=== PATIENT | male | born 1955 | race Caucasian/White ===

== ENCOUNTER 2019-02-26 22:09 | Observation (INO) | payer MEDICAID, SELFPAY ==
[2019-02-26 22:10] VITALS: BP 134/83; PULSE 67; RESP 16; TEMP 36.7; O2SAT 97; BMI 36.4
[2019-02-26] MEDS: 0.9% Normal Saline 1,000 ML 150 ML IV (23:37)
[2019-02-26 23:39] LABS: Absolute Lymphocyte Count 2.13 X10^3/ul (0.83-4.51); Absolute Neutrophil Count 3.3 X10^3/uL (2.0-7.7); Basophil# 0.04 X10^3/uL; Basophil% 0.6 % (0-1); Eosinophil# 0.22 X10^3/uL; Eosinophils% 3.5 % (0-5); Hematocrit 45.9 % (40-54); Lymphocyte # 2.13 X10^3/ul (4.0); Mean Corp Hgb Conc 34.9 g/gl (32-36); Mean Corpuscular Hgb 31.1 pg (27.0-32.0); Mean Corpuscular Volume 89.3 fL (80-94); Mean Platelet Vol. 11.4 fl (6.2-12.0); Monocyte# 0.57 X10^3/uL; Monocyte% 9.1 % (0-10); Neutrophil # 3.28 X10^3/uL (2.7-7.7); Neutrophil % 52.5 % (47-70); Platelet Count 137 K/mm3 (150-450); RBC Distribution Width CV 12.4 % (11.6-14.6); Red Blood Count 5.14 M/mm3 (4.6-6.2); White Blood Count 6.3 K/mm3 (4.4-11.0)
[2019-02-26 23:41] LABS: POSITIVE COUNT NO; POSITIVE DIFFERENTIAL NO; POSITIVE MORPHOLOGY NO
[2019-02-26 23:54] LABS: Anion Gap 9 (5-15); BUN 16 mg/dL (7-18); BUN/Creat Ratio 16.5 RATIO (10-20); Calcium,Total 8.1 mg/dL (8.5-10.1); Chloride 105 mmol/L (98-107); Creatinine, Serum 0.97 mg/dL (0.70-1.30); EST Glomerular Filtration Rate 83 mL/min (>60); Est Glom Filt Rate - Afr Amer 101 mL/min (>60); Estimated Creatinine Clearance 75.41 ml/min; Glucose 294 mg/dL (74-106); Potassium 3.9 mmol/L (3.5-5.1); Sodium Level 139 mmol/L (136-145)
[2019-02-27] MEDS: DiphenhydrAMINE 50 MG/ML Syringe 25 MG IV (00:13)
[2019-02-27 00:14] VITALS: BP 143/87; PULSE 52; RESP 16; O2SAT 98
--- NOTE | 2019-02-27 00:27 | ED.VISSUMM ---
- ER Visit Summary Date of Service: 02/27/19 Chief Complaint: Cellulitis History of Present Illness: The patient is a 63 M with a red rash and lesions to the right lower extremity over the past 10 days. Lesions have been just below the knee. He was seen at a hospital in [place] approximately 10 days ago. He started on Bactrim 7 days ago along with metformin for untreated diabetes. Patient reports no improvement in the lower leg lesions but now has multiple pustule-like lesions on the right thigh. He denies fever or chills. Patient states in 2014 he had a similar infection in his left leg and he was hospitalized at [facility] for 5 days for an IV antibiotics. Patient states his blood sugar this morning was in the 360 range. Physical Examination: Vital signs unremarkable. Patient sitting upright in bed no acute distress. Heart is regular rate and rhythm. Lung sounds clear. Abdomen is soft nontender. Right lower extremity examination reveals pustules and folliculitis type lesions to the right thigh. There is a confluence of small blister lesions on the lower leg with surrounding erythema. No open draining wounds at this time that would be amenable to culture. Strong distal pulses are noted. Test Results: Blood cultures were drawn. CBC was remarkable only for a platelet count of 137,000. Chemistry studies significant for glucose of 294. Emergency Department Course and Treatment: Patient was given Benadryl for the itchiness to the lesions as well as a dose of IV vancomycin. Patient has been on Bactrim for 7 days and is noted worsening of the lesions. He will be admitted for IV antibiotics at this time. Treatment Plan: [] Disposition: Admit Impression: Right lower extremity cellulitis, failed outpatient management This note was generated with Bizware dictation software. It may contain incorrect words, spelling, and punctuation that were not noted in review of the chart prior to signing ED Disposition - Plan for ED Patient: Referrals: Care Physician,No Primary [Primary Care Provider] -
--- NOTE | 2019-02-27 00:30 | ED.DCSUM_ITS ---
- ER Visit Summary Date of Service: 02/27/19 Chief Complaint: Cellulitis History of Present Illness: The patient is a 63 M with a red rash and lesions to the right lower extremity over the past 10 days. Lesions have been just below the knee. He was seen at a hospital in [place] approximately 10 days ago. He started on Bactrim 7 days ago along with metformin for untreated diabetes. Patient reports no improvement in the lower leg lesions but now has multiple pustule-like lesions on the right thigh. He denies fever or chills. Patient states in 2014 he had a similar infection in his left leg and he was hospitalized at [facility] for 5 days for an IV antibiotics. Patient states his blood sugar this morning was in the 360 range. Physical Examination: Vital signs unremarkable. Patient sitting upright in bed no acute distress. Heart is regular rate and rhythm. Lung sounds clear. Abdomen is soft nontender. Right lower extremity examination reveals pustules and folliculitis type lesions to the right thigh. There is a confluence of small blister lesions on the lower leg with surrounding erythema. No open draining wounds at this time that would be amenable to culture. Strong distal pulses are noted. Test Results: Blood cultures were drawn. CBC was remarkable only for a platelet count of 137,000. Chemistry studies significant for glucose of 294. Emergency Department Course and Treatment: Patient was given Benadryl for the itchiness to the lesions as well as a dose of IV vancomycin. Patient has been on Bactrim for 7 days and is noted worsening of the lesions. He will be admitted for IV antibiotics at this time. Treatment Plan: [] Disposition: Admit Impression: Right lower extremity cellulitis, failed outpatient management This note was generated with [employer] dictation software. It may contain incorrect words, spelling, and punctuation that were not noted in review of the chart prior to signing ED Disposition - Plan for ED Patient: Referrals: Care Physician,No Primary [Primary Care Provider] -
--- NOTE | 2019-02-27 00:35 | PCM.HP.STD ---
Problem List (1) Cellulitis of right leg Status: Acute (2) Diabetes Status: Acute History of Present Illness Date of Admission: 02/27/19 Chief Complaint: Failed outpatient treatment for right leg cellulitis. The patient is a 63 year old M with a significant history of homelessness diabetes mellitus and previous MRSA infection of the left leg who presented with failure of outpatient treatment of right leg cellulitis. His symptoms started about 10 days ago. He reports swelling; redness; throbbing and numbness of his right leg. 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 Patient reported that outpatient he was given Bactrim and a cream. However he noticed that he had developed a rash about the site of cellulitis; specifically on his right thigh. He reported he was recently started on metformin for diabetes. Many years ago his blood glucose was high but he brushed it aside. The emergency department patient was given a vancomycin and Benadryl for itching of his right leg. . Past Medical History Allergies No Known Allergies Allergy (Verified 02/26/19 22:12) Home Medications: Ambulatory Orders Medication Instructions Recorded Metformin HCl [Glucophage] 500 mg PO DINNER 02/26/19 Sulfamethoxazole/Trimethoprim 1 each PO BID 02/26/19 [Bactrim Ds Tablet] Smoking Status: Never smoker VTE Information - Inpt Only VTE Present on Admission: No VTE Pharm Prophylaxis ordered?: Yes Patient Problems: Active and Suspected Problems Cellulitis of right leg (Acute) Diabetes (Acute) - Physical Exam General: Alert, Oriented x3, Cooperative HEENT: Atraumatic, PERRLA, EOMI, Normocephalic Neck: Supple, No JVD, Negative Carotid Bruits Lungs: Clear to auscultation, Normal air movement Cardiovascular: Regular rate, No murmurs Abdomen: Bowel Sounds Present, Soft, Non Tender Extremities: No edema, Capillary Refill Less than 3 Seconds Skin: No rashes, No breakdown, - - Erythema and excoriation of right leg; excoriation on right hip/thigh Musculoskeletal: No Tenderness to Palpation of Joints or Extremities Neurological: Motor Exam 5/5 strength throughout Psych/Mental Status: Normal Affect, Appropriate Vital Signs Temp Pulse Resp BP Pulse Ox 98.1 F 52 L 16 143/87 H 98 02/26/19 22:10 02/27/19 00:14 02/27/19 00:14 02/27/19 00:14 02/27/19 00:14 Oxygen Delivery Method Room Air Weight: 108.7 kg Body Mass Index (BMI) 36.4 Laboratory Tests Past 24 Hrs 02/26/19 02/26/19 23:30 23:30 WBC 6.3 RBC 5.14 Hgb 16.0 Hct 45.9 MCV 89.3 MCH 31.1 MCHC 34.9 RDW 12.4 RDW Differential 40.0 Plt Count 137 L MPV 11.4 Immature Gran % (Auto) 0.300 Neut % (Auto) 52.5 Lymph % (Auto) 34.0 Metcalfe % (Auto) 9.1 Eos % (Auto) 3.5 Baso % (Auto) 0.6 Absolute Neuts (auto) 3.3 Absolute Lymphs (auto) 2.13 Total Counted Not Reportable Sodium 139 Potassium 3.9 Chloride 105 Carbon Dioxide 25.0 Anion Gap 9 BUN 16 Creatinine 0.97 Estim Creat Clear Calc 75.41 Est GFR (MDRD) Af Amer 101 Est GFR (MDRD) Non-Af 83 BUN/Creatinine Ratio 16.5 Glucose 294 H Calcium 8.1 L Assessment/Plan All Active Problems Cellulitis of right leg (Acute) Diabetes (Acute) The patient is a 63 year old M with a significant history of homelessness diabetes mellitus and previous MRSA infection of the left leg who presented with failure of outpatient treatment of right leg cellulitis. Right leg cellulitis Patient received vancomycin emergency department. We will continue vancomycin and add cefazolin. We will get a Doppler of lower extremity. Diabetes mellitus On presentation his blood glucose was not within goal. We will hold metformin Will put patient on basal; prandial and correction scale insulin. Homelessness Case management consult DVT prophylaxis Subcutaneous Lovenox Code Visit Inpatient E&M: 02048 Init Hosp L3
--- NOTE | 2019-02-27 01:33 | VDLE_ITS ---
Reason For Study: SWELLING RIGHT LEFT GSV is normal. GSV is normal. CFV is compressible, spontaneous, phasic, CFV is compressible, spontaneous, phasic, competent and demonstrates normal competent, and demonstrates normal augmentation. augmentation. FV is compressible, spontaneous, phasic, FV is compressible, spontaneous, phasic, competent and demonstrates normal competent and demonstrates normal augmentation. augmentation. POP V is compressible, spontaneous, phasic, POP V is compressible, spontaneous, phasic, competent and demonstrates normal competent and demonstrates normal augmentation. augmentation. T/P Trunk is compressible. T/P Trunk is compressible. PTV is compressible. PTV is compressible. RT PerV is compressible. LT PerV is compressible. Procedure Exam performed portable in patient room. A preliminary report was called and/or faxed to [facility]. Interpretation Summary No evidence for acute deep venous thrombosis bilateral lower extremities with patent and compressible bilateral great saphenous veins. Ordering Physician: Adonis Costello Referring Physician: Adonis Costello Performed By: Dedra Manjarrez, SANDIE, RVT
[2019-02-27 01:37] VITALS: BP 141/82; PULSE 53; RESP 16; TEMP 36.4; O2SAT 100
[2019-02-27 01:46] VITALS: BMI 36.1
[2019-02-27 02:01] LABS: Bedside Glucose 296 mg/dL (70-110)
[2019-02-27 02:02] VITALS: BMI 36.2
--- NOTE | 2019-02-27 02:13 | PCM.RX.CS ---
Consult Pharmacy has been consulted to manage selected antiobiotic: Vancomycin Type of Consult: New start Suspected Infection: Skin/Soft tissue Prior Doses of Antibiotics Received/Current Regimen: Medications Vancomycin HCl 1,500 mg/ (Sodium Chloride) 530 mls @ 250 mls/hr IV Q12H CATHY Discontinued Medications Vancomycin HCl 1,750 mg/ (Dextrose) 535 mls @ 250 mls/hr IV X1 ONE Stop: 02/27/19 01:23 Last Admin: 02/26/19 23:37 Dose: 250 mls/hr Labs: Sodium 139 mmol/L (136-145) 02/26/19 23:30 Potassium 3.9 mmol/L (3.5-5.1) 02/26/19 23:30 Chloride 105 mmol/L (98-107) 02/26/19 23:30 Carbon Dioxide 25.0 mmol/L (21.0-32.0) 02/26/19 23:30 Anion Gap 9 (5-15) 02/26/19 23:30 BUN 16 mg/dL (7-18) 02/26/19 23:30 Creatinine 0.97 mg/dL (0.70-1.30) 02/26/19 23:30 Est GFR (MDRD) Af Amer 101 mL/min (>60) 02/26/19 23:30 Est GFR (MDRD) Non-Af 83 mL/min (>60) 02/26/19 23:30 BUN/Creatinine Ratio 16.5 RATIO (10-20) 02/26/19 23:30 Glucose 294 mg/dL (74-106) H 02/26/19 23:30 Weight used for dosin.7 kg Estimated Creatinine Clearance: 75 Goal Trough: 15-20 mcg/mL Pharmacy Plan for Drug Dosing: Pharmacy Service will continue to monitor and adjust dosing as required. Follow-Up Labs: Trough Vancomycin Labs to be done on [date and time ordered]: 02/28/19 @1100
[2019-02-27] MEDS: Cefazolin 1 GM/50 ML BAG IV ×4 (02:51→20:51)
[2019-02-27 06:24] LABS: Absolute Lymphocyte Count 1.63 X10^3/ul (0.83-4.51); Absolute Neutrophil Count 2.9 X10^3/uL (2.0-7.7); Basophil# 0.01 X10^3/uL; Basophil% 0.2 % (0-1); Eosinophil# 0.26 X10^3/uL; Eosinophils% 4.8 % (0-5); Hematocrit 43.4 % (40-54); Lymphocyte # 1.63 X10^3/ul (4.0); Mean Corp Hgb Conc 34.6 g/gl (32-36); Mean Corpuscular Hgb 31.3 pg (27.0-32.0); Mean Corpuscular Volume 90.4 fL (80-94); Mean Platelet Vol. 11.2 fl (6.2-12.0); Monocyte# 0.61 X10^3/uL; Monocyte% 11.2 % (0-10); Neutrophil # 2.89 X10^3/uL (2.7-7.7); Neutrophil % 53.2 % (47-70); Platelet Count 116 K/mm3 (150-450); RBC Distribution Width CV 12.4 % (11.6-14.6); RBC Distribution Width SD 40.5 fl (35.1-43.9); White Blood Count 5.4 K/mm3 (4.4-11.0)
[2019-02-27 06:25] LABS: POSITIVE COUNT NO; POSITIVE DIFFERENTIAL NO; POSITIVE MORPHOLOGY NO
[2019-02-27 06:32] LABS: Anion Gap 6 (5-15); BUN 14 mg/dL (7-18); BUN/Creat Ratio 14.8 RATIO (10-20); Calcium,Total 8.1 mg/dL (8.5-10.1); Chloride 105 mmol/L (98-107); Creatinine, Serum 0.94 mg/dL (0.70-1.30); EST Glomerular Filtration Rate 86 mL/min (>60); Est Glom Filt Rate - Afr Amer 104 mL/min (>60); Estimated Creatinine Clearance 77.82 ml/min; Glucose 285 mg/dL (74-106); Potassium 3.5 mmol/L (3.5-5.1); Sodium Level 139 mmol/L (136-145)
[2019-02-27 06:41] VITALS: BP 144/88; PULSE 60; RESP 16; TEMP 36.8; O2SAT 97
[2019-02-27 06:50] LABS: Bedside Glucose 287 mg/dL (70-110)
[2019-02-27 09:05] VITALS: BP 138/82; PULSE 63; RESP 16; TEMP 36.4; O2SAT 97
[2019-02-27] MEDS: Insulin Lispro 100 UNIT/ML INSULN.PEN SQ ×5 (09:13→17:04)
[2019-02-27] MEDS: Enoxaparin 40 MG/0.4 ML Syringe SC (09:14)
[2019-02-27] MEDS: DiphenhydrAMINE 25 MG Capsule PO ×2 (09:26→20:57)
[2019-02-27 09:31] LABS: Bedside Glucose 373 mg/dL (70-110)
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
[2019-02-27 12:41] LABS: Bedside Glucose 232 mg/dL (70-110)
[2019-02-27 14:50] VITALS: BP 130/77; PULSE 56; RESP 16; TEMP 36.4; O2SAT 97
--- NOTE | 2019-02-27 14:50 | CHAPLAIN ---
Type of Pastoral Visit _x__ Initial Visit ___ Follow-up Visit ___ On-call Visit ___ General Patient Visit ___ Spiritual Assessment ___ Family Conference ___ Bereavement ___ Rapid Response ___ Code Blue ___ Other (describe below) Pastoral Care Referral From _x__ Patient ___ Family ___ Nurse ___ Physician ___ Access Registrar ___ Karate Instructor ___ Other (describe below) Sacrament/Intervention _x__ Active listening ___ Anointing ___ Rastafarian ___ Bereavement ___ Communion ___ April exploration ___ _x__ Life review _x__ Prayer ___ Reconciliation ___ Sacrament of Sick ___ Supportive presence ___ Wedding ___ Other (describe below) Pastoral Comments patient is walking in the hallways and engages this foreclosure field inspector into conversation; pt gives life review and life stories; pt welcomes spiritual support and prayer;
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
[2019-02-27] MEDS: Furosemide 40 MG/4 ML Vial IV (15:39)
[2019-02-27 16:21] LABS: Anion Gap 5 (5-15); BUN 15 mg/dL (7-18); BUN/Creat Ratio 15.1 RATIO (10-20); Calcium,Total 8.1 mg/dL (8.5-10.1); Chloride 107 mmol/L (98-107); EST Glomerular Filtration Rate 80 mL/min (>60); Est Glom Filt Rate - Afr Amer 97 mL/min (>60); Estimated Creatinine Clearance 73.15 ml/min; Glucose 163 mg/dL (74-106); Sodium Level 140 mmol/L (136-145)
[2019-02-27] MEDS: Insulin Lispro 100 UNIT/ML INSULN.PEN 10 UNIT SQ (17:04)
[2019-02-27 17:35] LABS: Bedside Glucose 189 mg/dL (70-110)
--- NOTE | 2019-02-27 17:57 | PCM.HOSP.N ---
Hospitalist Note Patient was seen and examined today and I talked with him briefly, patient has a bizarre affect and changes subjects continuously while talking to him, he states that he had a checkup at a urologist office in 2017 and his blood sugar was checked at that time and it was over 700-he then proceeded to tell me that no definitive recommendation was made to him about his blood sugar by the urologist. Patient also states that he was never told definitely that he had MRSA, he states that a nurses aide had looked at his leg previously when he had an episode of cellulitis and told him that it appeared to look like MRSA. Patient states he saw many physicians during a hospitalization at [facility] years ago and the physicians were not able to definitely give him a diagnosis. Patient states that a week ago he saw a primary care physician for an evaluation and was placed on antibiotics for redness of his right lower leg and at that time he was given medication for type 2 diabetes (metformin). Patient does not have a residence-he states he lives out of his car. I have decided to adjust the patient's insulin regimen, I have placed the patient on triamcinolone cream to his right lower leg, I have elected to keep him on Ancef for his cellulitis, I have decided to place him on IV Lasix due to severe lower extremity edema. Patient's venous duplex scan on his legs did not reveal VTE. It appears that the patient likely has a personality disorder, bipolar disorder, or possibly schizoaffective disorder. This is based on my evaluation and interaction with the patient during my visit in his room today.
--- NOTE | 2019-02-27 18:02 | CCHN_ITS ---
Hospitalist Note Patient was seen and examined today and I talked with him briefly, patient has a bizarre affect and changes subjects continuously while talking to him, he states that he had a checkup at a urologist office in 2017 and his blood sugar was checked at that time and it was over 700-he then proceeded to tell me that no definitive recommendation was made to him about his blood sugar by the urologist. Patient also states that he was never told definitely that he had MRSA, he states that a nurses aide had looked at his leg previously when he had an episode of cellulitis and told him that it appeared to look like MRSA. Patient states he saw many physicians during a hospitalization at [facility] years ago and the physicians were not able to definitely give him a diagnosis. Patient states that a week ago he saw a primary care physician for an evaluation and was placed on antibiotics for redness of his right lower leg and at that time he was given medication for type 2 diabetes (metformin). Patient does not have a residence-he states he lives out of his car. I have decided to adjust the patient's insulin regimen, I have placed the patien t on triamcinolone cream to his right lower leg, I have elected to keep him on Ancef for his cellulitis, I have decided to place him on IV Lasix due to severe lower extremity edema. Patient's venous duplex scan on his legs did not reveal VTE. It appears that the patient likely has a personality disorder, bipolar disorder, or possibly schizoaffective disorder. This is based on my evaluation and interaction with the patient during my visit in his room today.
[2019-02-27] MEDS: Furosemide 20 MG/2 ML VIAL IV (18:35)
[2019-02-27 20:45] VITALS: BP 136/76; PULSE 65; RESP 18; TEMP 36.7; O2SAT 96
[2019-02-27 20:45] LABS: Bedside Glucose 99 mg/dL (70-110)
[2019-02-27] MEDS: Triamcinolone 0.5% Cream 1 APPLIC TOPICAL (20:48)
--- NOTE | 2019-02-27 23:03 | NURSING ---
pt removed dressing again and is touching and scratching his wound advised against this. pt asking for more benadryl reminded pt that he already had 25mg @ 2100 explained that will have to check with dr to see if he can have anything else. Pt irritable with nurse stating he wants med. Explained that the dr has to order any medication that we give him will let him know what the dr says.
--- NOTE | 2019-02-27 23:17 | NURSING ---
informed pt we cannot give additional benadryl at this time. offered cool compress. pt accepted. pt frustrated with this RN asking why the doctor doesn't come see him. This RN explained to the pt that doctors do not round on each pt at night unless it is an emergency and that he would be seen tomorrow. pt expressed understanding and accepted the cool compress.
[2019-02-28] MEDS: Cefazolin 1 GM/50 ML BAG IV (05:07)
[2019-02-28] MEDS: DiphenhydrAMINE 25 MG Capsule PO (05:07)
[2019-02-28] MEDS: 0.9% NaCl Peripheral Flush Adult/Peds IV (05:08)
[2019-02-28 05:14] VITALS: BP 128/73; PULSE 50; RESP 16; TEMP 36.8; O2SAT 98
[2019-02-28] MEDS: Insulin Lispro 100 UNIT/ML INSULN.PEN 10 UNIT SQ (09:15)
[2019-02-28] MEDS: Enoxaparin 40 MG/0.4 ML Syringe SC (09:18)
[2019-02-28] MEDS: Furosemide 20 MG/2 ML VIAL IV (09:18)
[2019-02-28] MEDS: Triamcinolone 0.5% Cream 1 APPLIC TOPICAL (09:18)
[2019-02-28 09:43] VITALS: BP 124/70; PULSE 54; RESP 16; TEMP 36.8; O2SAT 98
--- NOTE | 2019-02-28 11:04 | DCINST_ITS ---
- Discharge Diagnoses Current Active Problems: Current Active and Chronic Problems Cellulitis of right leg (Acute) Diabetes (Acute) You will use the following diet at home:: Calorie/Carbohydrate Controlled (specify 1200, 1400, etc) - 1800 Your food should be the consistency of: Regular Your liquids should be the consistency of: Regular/Thin Discharge Activity: Return to Normal Activity Weight Bearing Status: Full weight bearing Allergies/Adverse Reactions: Allergies No Known Allergies Allergy (Verified 02/26/19 22:12) Medications to take at Discharge Cefadroxil [Duracef] 1,000 mg PO BID #30 capsule 02/28/19 Glimepiride [Amaryl] 4 mg PO DAILY #30 tablet 02/28/19 Metformin HCl [Glucophage] 500 mg PO BID #60 tablet 02/28/19 Sildenafil Citrate [Viagra] 100 mg PO UD #10 tablet 02/28/19 Triamcinolone 0.5% Cream [Kenalog] 1 applic TOPICAL BID #30 gm 02/28/19 The following prescriptions were given: Glimepiride [Amaryl] 4 mg PO DAILY #30 tablet Sildenafil Citrate [Viagra] 100 mg PO UD #10 tablet Cefadroxil [Duracef] 1,000 mg PO BID #30 capsule Metformin HCl [Glucophage] 500 mg PO BID #60 tablet Triamcinolone 0.5% Cream [Kenalog] 1 applic TOPICAL BID #30 gm Primary Care Physician: Care Physician,No Primary [Primary Care Provider] - Please follow up with your Primary Care Physician in: in two weeks Test Results: Test results from this visit will be discussed in further detail at your follow- up appointment, if applicable.
--- NOTE | 2019-02-28 19:25 | PCM.DC.SUM ---
Discharge Date and Diagnosis Date of Admission: 02/27/19 Date of Discharge: 02/28/19 - Primary Discharge Diagnosis #1 right lower leg lebufvhdos-mwhz-hufodelv bacterial #2 eczema right lower leg #3 uncontrolled type 2 diabetes #4 peripheral edema-etiology unclear Hospital Course and Treatment Operations: None Procedures: None Summary of Care Provided: The patient is a 63 year old M who was seen in the emergency room at [facility] complains of a red rash on his right lower extremity over the past 10 days. Patient states that he had been diagnosed with type 2 diabetes approximately 10 days ago and placed on medications for diabetes and 7 days ago he was started on Bactrim. Patient reported no improvement in his rash and came to the ER for evaluation. Patient was given Benadryl in the emergency room as well as IV vancomycin, labs were obtained CBC was remarkable only for a platelet count of 137,000, chemistry studies were significant for glucose of 294. Patient was placed into observation status for right lower extremity cellulitis with failed outpatient treatment, his antibiotic was changed to IV Ancef, he was placed on corticosteroid cream for eczema on his right lower leg and he underwent a venous duplex scan of his legs to rule out DVT, no DVT was found. Patient was placed on some IV Lasix for lower extremity edema and he was placed on insulin to control his type 2 diabetes. Patient exhibited some personality traits during his hospitalization, he talked inappropriately about sexual matters at times and exhibited some flight of ideas. On 02/28/2019, patient was seen and examined: On examination he appeared in good health and spirits. Vital signs as documented. Skin warm and dry and without overt rashes. Neck without JVD. Lungs clear. Heart exam notable for regular rhythm, normal sounds and absence of murmurs, rubs or gallops. Abdomen unremarkable and without evidence of organomegaly, masses, or abdominal aortic enlargement. Extremities-mild edema is noted over both lower legs, there are areas that appear to be folliculitis on the patient's right upper leg, there are areas of what appear to be eczema over the patient's right lower leg along with some warmth and redness of the area.. Neuro: Cranial nerves II through XII are grossly intact, no focal motor deficits were noted, sensation to light touch and pinprick intact. Psych: Patient is alert and oriented x3, he does not appear anxious or depressed On 02/28/2019, patient was felt to be stable for discharge home, I made a decision to place the patient on oral medications for his diabetes due to the fact that he was not compliant with follow-up visits-I recommended that the patient see a physician in town here and gave him a list of several physicians taking new patients. He was placed on Duricef for his cellulitis, I did not place him on diuretics at the time of discharge, patient requested ED medication and I gave him a prescription for Viagra. - Physical Exam Vital Signs Temp Pulse Resp BP Pulse Ox 98.2 F 54 L 16 124/70 H 98 02/28/19 09:43 02/28/19 09:43 02/28/19 09:43 02/28/19 09:43 02/28/19 09:43 Oxygen Delivery Method Room Air Weight: 108 kg Body Mass Index (BMI) 36.1 Intake and Output for Last 24 Hours 02/26/19 02/27/19 02/28/19 23:59 23:59 23:59 Intake Total 1927 / 1927 974 / 974 Output Total 600 / 600 Balance 1927 / 1927 374 / 374 Laboratory Tests Past 24 Hrs 02/28/19 10:50 Vancomycin Trough 3.0 L POC Glucose 02/27/19 20:31 POC Glucose 99 Discharge Activity: Return to Normal Activity Weight Bearing Status: Full weight bearing Home Medications: Medications to take at Discharge Cefadroxil [Duracef] 1,000 mg PO BID #30 capsule 02/28/19 Glimepiride [Amaryl] 4 mg PO DAILY #30 tablet 02/28/19 Metformin HCl [Glucophage] 500 mg PO BID #60 tablet 02/28/19 Sildenafil Citrate [Viagra] 100 mg PO UD #10 tablet 02/28/19 Triamcinolone 0.5% Cream [Kenalog] 1 applic TOPICAL BID #30 gm 02/28/19 Following Prescrptions Were Given to Patient: Glimepiride [Amaryl] 4 mg PO DAILY #30 tablet Sildenafil Citrate [Viagra] 100 mg PO UD #10 tablet Cefadroxil [Duracef] 1,000 mg PO BID #30 capsule Metformin HCl [Glucophage] 500 mg PO BID #60 tablet Triamcinolone 0.5% Cream [Kenalog] 1 applic TOPICAL BID #30 gm Primary Care Physician: Care Physician,No Primary [Primary Care Provider] - Please follow up with your Primary Care Physician in: in two weeks Disposition: Home Minutes spent on discharge:: 30 Patient Condition:: Stable Medical Necessity - Tobacco Use Smoking Status: Never smoker Meaningful Use Info Meaningful Use Diagnoses (Choose all that apply): None applicable Code Visit OBSV E&M: 71032 Observation care discharge
--- NOTE | 2019-02-28 19:31 | DS.PCM_ITS ---
Discharge Date and Diagnosis Date of Admission: 02/27/19 Date of Discharge: 02/28/19 - Primary Discharge Diagnosis #1 right lower leg ikbwjizhgf-jwvw-xjxsibwk bacterial #2 eczema right lower leg #3 uncontrolled type 2 diabetes #4 peripheral edema-etiology unclear Hospital Course and Treatment Operations: None Procedures: None Summary of Care Provided: The patient is a 63 year old M who was seen in the emergency room at [facility] complains of a red rash on his right lower extremity over the past 10 days. Patient states that he had been diagnosed with type 2 diabetes a pproximately 10 days ago and placed on medications for diabetes and 7 days ago he was started on Bactrim. Patient reported no improvement in his rash and came to the ER for evaluation. Patient was given Benadryl in the emergency room as well as IV vancomycin, labs were obtained CBC was remarkable only for a platelet count of 137,000, chemistry studies were significant for glucose of 294. Tripp restrepo was placed into observation status for right lower extremity cellulitis with failed outpatient treatment, his antibiotic was changed to IV Ancef, he was placed on corticosteroid cream for eczema on his right lower leg and he underwent a venous duplex scan of his legs to rule out DVT, no DVT was found. Patient was placed on some IV Lasix for lower extremity edema and he was placed on insulin to control his type 2 diabetes. Patient exhibited some personality traits during his hospitalization, he talked inappropriately about sexual matters at times and exhibited some flight of ideas. On 02/28/2019, patient was seen and examined: On examination he appeared in good health and spirits. Vital signs as documented. Skin warm and dry and without overt rashes. Neck without JVD. Lungs clear. Heart exam notable for regular rhythm, normal sounds and absence of murmurs, rubs or gallops. Abdomen unremarkable and without evidence of organomegaly, masses, or abdominal aortic enlargement. Extremities-mild edema is noted over both lower legs, there are areas that appear to be folliculitis on the patient's right upper leg, there are areas of what appear to be eczema over the patient's right lower leg along with some warmth and redness of the area.. Neuro: Cranial nerves II through XII are grossly intact, no focal motor deficits were noted, sensation to light touch and pinprick intact. Psych: Patient is alert and oriented x3, he does not appear anxious or depressed On 02/28/2019, patient was felt to be stable for discharge home, I made a decision to place the patient on oral medications for his diabetes due to the fact that he was not compliant with follow-up visits-I recommended that the patient see a physician in town here and gave him a list of several physicians taking new patients. He was placed on Duricef for his cellulitis, I did not place him on diuretics at the time of discharge, patient requested ED medication and I gave him a prescription for Viagra. - Physical Exam Vital Signs Temp Pulse Resp BP Pulse Ox 98.2 F 54 L 16 124/70 H 98 02/28/19 09:43 02/28/19 09:43 02/28/19 09:43 02/28/19 09:43 02/28/19 09:43 Oxygen Delivery Method Room Air Weight: 108 kg Body Mass Index (BMI) 36.1 Intake and Output for Last 24 Hours 02/26/19 02/27/19 02/28/19 23:59 23:59 23:59 Intake Total 1927 / 1927 974 / 974 Output Total 600 / 600 Balance 1927 / 1927 374 / 374 Laboratory Tests Past 24 Hrs 02/28/19 10:50 Vancomycin Trough 3.0 L POC Glucose 02/27/19 20:31 POC Glucose 99 Discharge Activity: Return to Normal Activity Weight Bearing Status: Full weight bearing Home Medications: Medications to take at Discharge Cefadroxil [Duracef] 1,000 mg PO BID #30 capsule 02/28/19 Glimepiride [Amaryl] 4 mg PO DAILY #30 tablet 02/28/19 Metformin HCl [Glucophage] 500 mg PO BID #60 tablet 02/28/19 Sildenafil Citrate [Viagra] 100 mg PO UD #10 tablet 02/28/19 Triamcinolone 0.5% Cream [Kenalog] 1 applic TOPICAL BID #30 gm 02/28/19 Following Prescrptions Were Given to Patient: Glimepiride [Amaryl] 4 mg PO DAILY #30 tablet Sildenafil Citrate [Viagra] 100 mg PO UD #10 tablet Cefadroxil [Duracef] 1,000 mg PO BID #30 capsule Metformin HCl [Glucophage] 500 mg PO BID #60 tablet Triamcinolone 0.5% Cream [Kenalog] 1 applic TOPICAL BID #30 gm Primary Care Physician: Care Physician,No Primary [Primary Care Provider] - Please follow up with your Primary Care Physician in: in two weeks Disposition: Home Minutes spent on discharge:: 30 Patient Condition:: Stable Medical Necessity - Tobacco Use Smoking Status: Never smoker Meaningful Use Info Meaningful Use Diagnoses (Choose all that apply): None applicable Code Visit OBSV E&M: 88153 Observation care discharge
== END 2019-02-28 12:00 | disposition home or self-care (01) ==
LOC: ED 23:25 → MS3 02-27 01:17
PROVIDERS: Admitting Provider Hospitalist; Emergency Provider Emergency Medicine; Referring Provider Hospitalist; Visit Provider Internal Medicine
DX: L03.115 Cellulitis of right lower limb (principal); E11.65 Type 2 diabetes mellitus with hyperglycemia; L30.9 Dermatitis, unspecified; Z79.84 Long term (current) use of oral hypoglycemic drugs; Z86.14 Personal history of Methicillin resistant Staphylococcus aureus infection; Z59.0 Homelessness; R60.0 Localized edema
CPT/HCPCS: 36415; 80048; 80202; 82962; 85025; 87040; 93970; 96365; 96366; 96367; 96372; 96375; 96376; 99218; 99284; J7040; A4216; G0378; J1940